=== PATIENT | male | born 1970 | race Caucasian/White ===

== ENCOUNTER 2018-11-01 05:06 | Day surgery (SDC) | payer OTHER ==
[~2018-11-01] VITALS: Ht 175.3 cm; Wt 96.6 kg
[~2018-11-01 05:06] MED LIST: BAYER CHEWABLE81 MG PO; MOBIC7.5 MG PO; ZANAFLEX4 MG PO; ZETIA10 MG PO
[2018-11-01 05:37] LABS: HEMOGLOBIN 14.1 g/dL (13.5-17.5); MCH 30.5 pg (26.0-34.0); MCHC 34.4 g/dL (31.0-37.0); MCV 88.7 fL (80.0-100.0); MEAN PLATELET VOLUME 11.7 fL (7.4-10.4); RBC 4.62 10x6/uL (4.20-6.10); RDW 13.8 % (11.5-14.5); WBC 6.4 10x3/uL (4.8-10.8)
[2018-11-01 06:36] VITALS: BP 141/74; Ht 175.3 cm; Wt 96.6 kg
--- NOTE | 2018-11-01 07:34 | NUR ---
PT NOT GIVEN REGLAN DUE TO STATED RESTLESS LEG CONDITION
[2018-11-01] MEDS ORDERED: HYDROCODON-ACE1 EA10 PO (07:53)
--- NOTE | 2018-11-01 08:27 | NUR ---
SCOPE PATCH BEHIND LEFT EAR ON ADMIT
--- NOTE | 2018-11-05 10:07 | OP ---
PATIENT NAME: KING PANIAGUA MEDICAL RECORD: [id number] :70 LOCATION:[facility] ADMISSION DATE: SURGEON: CHI BETANCUR MD DATE OF OPERATION: 11/01/2018 PREOPERATIVE DIAGNOSES: 1. Ventral hernia. 2. Hypertension. 3. Hypercholesterolemia. 4. Tobacco dependence syndrome. POSTOPERATIVE DIAGNOSES: 1. Ventral hernia. 2. Hypertension. 3. Hypercholesterolemia. 4. Tobacco dependence syndrome. PROCEDURE: Ventral hernia repair. SURGEON: Chi Betancur MD REPORT OF PROCEDURE: The patient's abdomen was prepped and draped in sterile fashion. A semicircular incision was made on the inferior aspect of the umbilicus. Electrocautery was used to dissect through subcutaneous tissue. The patient had a small umbilical stalk. We elevated the stalk using electrocautery and could immediately see there was a fascial defect which was fat containing. We cleared off the fascial edges removing the hernia sac and the hernia defect was measured out at approximately 1 cm. We cleared off the tissue above and on the top side of the fascia and reapproximated the fascia transversely using interrupted 0 Prolenes times 3. We then tacked down the Prolene knots using interrupted 0 Vicryls. The umbilicus was tacked down to the fascia using a single interrupted 3-0 Vicryl and the subcutaneous tissues were reapproximated with interrupted 3-0 Vicryls. A total of 10 mL of 0.25% Marcaine plain was infused into the surrounding tissues and the skin incision was closed with running subcutaneous 5-0 Monocryl. COMPLICATIONS: None. CONDITION: Stable. ANESTHESIA: General endotracheal and local. BLOOD LOSS: Minimal. TRANSINT:[id number] Voice Confirmation ID: [id number] DOCUMENT ID: [id number] CHI BETANCUR MD at 1007 CC: ERNST YOUNGER DO [id number] DICTATION DATE: 11/01/18 0756 OFFAL SEPARATOR: 11/01/18 0915 [facility] 11/01/[address] [id number]
== END 2018-11-01 09:30 | disposition home or self-care (01) ==
LOC: D.OPS 05:06 → D.PAN 07:15 → D.OPS 07:15 → D.PAN 08:00 → D.OPS 09:30
PROVIDERS: ATTEND Surgery
DX: K43.9 Ventral hernia without obstruction or gangrene (principal); I10 Essential (primary) hypertension; E78.00 Pure hypercholesterolemia, unspecified; F17.200 Nicotine dependence, unspecified, uncomplicated

== ENCOUNTER → 2019-06-16 18:01 | Outpatient (CLI) | payer OTHER ==
[2018-11-01 06:36] VITALS: BMI 31.5
[~2019-06-16 18:01] MED LIST changes: +HYDROCODON-ACE1 EA10 PO
== END | disposition home or self-care (01) ==
LOC: D.LABREF 18:01
PROVIDERS: ATTEND Surgery
DX: A63.0 Anogenital (venereal) warts (principal)